=== PATIENT | female | born 1980 | race African-American/Black ===

== ENCOUNTER 2017-07-31 20:15 | Inpatient (IN) | payer OTHER ==
[2017-07-31] MEDS ORDERED: MELATONIN 5 MG TABLETS PO PRN (22:00)
[2017-07-31 22:38] VITALS: BMI 24.2
--- NOTE | 2017-07-31 23:12 | HP ---
CIWA Score - CIWA Score Nausea/Vomitin-Mild Nausea/No Vomiting Muscle Tremors: 3 Anxiety: 4-Mod. Anxious/Guarded Agitation: 5 Paroxysmal Sweats: 3 Orientation: 1-Uncertain about Date Tacttile Disturbances: 0-None Auditory Disturbances: 0-None Visual Disturbances: 0-None Headache: 0-None Present CIWA-Ar Total Score: 17 Admission ROS BHS - HPI Chief Complaint: C/O WITHDRAWAL SX'S. SEEKING DETOX TXMENT FOR ALCOHOLISM Allergies/Adverse Reactions: Allergies Allergy/AdvReac Type Severity Reaction Status Date / Time Fish Containing Products Allergy Verified 07/31/17 23:06 History of Present Illness: 37 Y.O. FEMLAE WITH HX/O ALCOHOLISM HERE FOR DETOX. CLIENT WAS REFERRED FROM [facility] AFTER PRESENTING THERE FOR OUT PATIENT TXMENT. LAST DETOX 2 MONTHS AGO. THIS IS HER FIRST TIME HERE. REPORTS LONGEST CLEAN TIME 4 MONTHS. 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 Loss EENT: reports: Other (GLASSES) Respiratory: reports: No Symptoms reported Cardiac: reports: No Symptoms Reported GI: reports: Nausea, Poor Appetite, Vomiting : reports: No Symptoms Reported Musculoskeletal: reports: Back Pain, Joint Pain, Other (L ELBOW FX 2 MONTHS AGO) Integumentary: reports: No Symptoms Reported Neuro: reports: Headache (MIGRAINES) Endocrine: reports: No Symptoms Reported Hematology: reports: Other (SICKLE CELL TRAIT) Psychiatric: reports: Anxious, Depressed Other Systems: Reviewed and Negative Patient History - Patient Medical History Hx Anemia: No Hx Asthma: Yes Hx Chronic Obstructive Pulmonary Disease (COPD): No Hx Cancer: No Hx Cardiac Disorders: No Hx Congestive Heart Failure: No Hx Hypertension: Yes (NO MEDS) Hx Hypercholesterolemia: No Hx Pacemaker: No HX Cerebrovascular Accident: No Hx Seizures: No Hx Dementia: No Hx Diabetes: No Hx Gastrointestinal Disorders: Yes (PANCREATITIS) Hx Liver Disease: No Hx Genitourinary Disorders: No Hx Sexually Transmitted Disorders: No Hx Renal Disease (ESRD): No Hx Thyroid Disease: No Hx Human Immunodeficiency Virus (HIV): No Hx Hepatitis C: No Hx Depression: Yes Hx Suicide Attempt: No Hx Bipolar Disorder: No Hx Schizophrenia: No Other Medical History: ANXIETY - Patient Surgical History Past Surgical History: Yes Other Surgical History: L INNER EAR Anesthesia Reaction: No - PPD History Previous Implant?: Yes Documented Results: Negative w/o proof Implanted On Prior R Admission?: No PPD to be Administered?: Yes - Reproductive History Patient is a Female of Child Bearing Age (11 -55 yrs old): Yes LMP comment: 2 WEEKS AGO Patient : No ([facility]) - Smoking Cessation Smoking history: Current every day smoker Have you smoked in the past 12 months: Yes Aproximately how many cigarettes per day: 20 Cigars Per Day: 0 Hx Chewing Tobacco Use: No Initiated information on smoking cessation: Yes 'Breaking Loose' booklet given: 07/31/17 - Substance & Tx. History Hx Alcohol Use: Yes Hx Substance Use: Yes Substance Use Type: Alcohol Hx Substance Use Treatment: Yes ([facility]) - Substances Abused VODKA Route: Oral Frequency: Daily Amount used: 3 PINTS Age of first use: 26 Date of Last Use: 07/31/17 Family Disease History - Family Disease History Family Disease History: Other: Father (DRUG ADDICT), Mother (SICKLE CELL TRAIT) Admission Physical Exam S - Vital Signs Vital Signs: Vital Signs - 24 hr 07/31/17 22:35 Temperature 98.2 F Pulse Rate 80 Respiratory 22 Rate Blood Pressure 158/97 - Physical General Appearance: Yes: Appropriately Dressed, Tremorous, Irritable HEENTM: Yes: EOMI, Normocephalic, Normal Voice, KAYLEEN, Pharynx Normal, Other ( GLASSES) Respiratory: Yes: Chest Non-Tender, Lungs Clear, Normal Breath Sounds, No Respiratory Distress, No Accessory Muscle Use Neck: Yes: No masses,lesions,Nodules, Supple, Trachea in good position Breast: Yes: Breast Exam Deferred Cardiology: Yes: Regular Rhythm, Regular Rate, S1, S2 Abdominal: Yes: Normal Bowel Sounds, Non Tender, Soft Genitourinary: Yes: Within Normal Limits Back: Yes: Normal Inspection Musculoskeletal: Yes: full range of Motion, Gait Steady Extremities: Yes: Normal Range of Motion, Non-Tender, Tremors Neurological: Yes: Fully Oriented, Alert, Motor Strength 5/5 Integumentary: Yes: Normal Color, Dry, Warm, Other (ECZEMA NOTED TO NECK AND FOLDS OF ARMS) Lymphatic: Yes: Within Normal Limits - Diagnostic (1) HTN (hypertension) Current Visit: Yes Status: Chronic Qualifiers: Hypertension type: essential hypertension Qualified Code(s): I10 - Essential (primary) hypertension (2) Nicotine dependence Current Visit: Yes Status: Chronic Qualifiers: Nicotine product type: cigarettes Substance use status: uncomplicated Qualified Code(s): F17.210 - Nicotine dependence, cigarettes, uncomplicated (3) Asthma Current Visit: Yes Status: Chronic Qualifiers: Asthma severity: mild Asthma persistence: intermittent Asthma complication type: uncomplicated Qualified Code(s): J45.20 - Mild intermittent asthma, uncomplicated (4) Alcohol dependence with uncomplicated withdrawal Current Visit: Yes Status: Chronic (5) History of pancreatitis Current Visit: Yes Status: Inactive (6) Eczema Current Visit: Yes Status: Acute Cleared for Admission S - Detox or Rehab S Level of Care: Medically Managed Detox Regimen/Protocol: Librium Claeared for Rehab Admission: No S Breath Alcohol Content Breath Alcohol Content: 0 Urine Pregancy Test - Result Urine Test Results: Negative- NO Line Present Urine Drug Screen - Results Drug Screen Negative: Yes
[2017-07-31] MEDS ORDERED: MAGNESIUM HYDROX 2400MG/30ML ORAL SUSPENSION 30 ML CUP PO PRN (23:28)
[2017-07-31] MEDS ORDERED: LOPERAMIDE HCL 2 MG CAPSULE PO PRN (23:28)
[2017-07-31] MEDS ORDERED: MAG HYDROX/AL HYDROX/SIMETH 30 ML UNIT-DOSE CUP PO PRN (23:28)
[2017-07-31] MEDS ORDERED: MENTHOL/PHENOL 1 EACH UD MM PRN (23:28)
[2017-07-31] MEDS ORDERED: hydrOXYzine PAMOATE 50 MG CAPSULE (FP) PO PRN (23:28)
[2017-07-31] MEDS ORDERED: P-EPHED 60MG/TRIPROLIDI 2.5MG TABLET PO PRN (23:28)
[2017-07-31] MEDS ORDERED: NICOTINE POLACRILEX 2 MG GUM BC PRN (23:28)
[2017-07-31] MEDS ORDERED: MAGNESIUM CITRATE 300 ML BOTTLE PO PRN (23:28)
[2017-07-31] MEDS ORDERED: IBUPROFEN 400 MG TABLET (FP) PO PRN (23:28)
[2017-07-31] MEDS ORDERED: guaiFENesin/D-METHORPHAN HB 10 ML UNIT-DOSE CUPS PO PRN (23:28)
[2017-07-31] MEDS ORDERED: chlordiazePOXIDE HCL 25 MG CAPSULE PO PRN (23:28)
[2017-07-31] MEDS ORDERED: ACETAMINOPHEN 325 MG TABLET (FP) PO PRN (23:28)
[2017-08-01] MEDS: chlordiazePOXIDE HCL 25 MG CAPSULE PO SCH ×5 (02:03→22:11)
--- NOTE | 2017-08-01 09:32 | EKG ---
Test Reason : Blood Pressure : / mmHG Vent. Rate : 081 BPM Atrial Rate : 081 BPM P-R Int : 148 ms QRS Dur : 088 ms QT Int : 432 ms P-R-T Axes : 074 010 035 degrees QTc Int : 501 ms NORMAL SINUS RHYTHM PROLONGED QT ABNORMAL ECG NO PREVIOUS ECGS AVAILABLE Confirmed by JASON SINGH MD ([id number]) on 08/01/2017 9:32:38 AM Referred By: Confirmed By:JASON SINGH MD
--- NOTE | 2017-08-01 09:32 | EKG ---
Test Reason : Blood Pressure : / mmHG Vent. Rate : 083 BPM Atrial Rate : 083 BPM P-R Int : 146 ms QRS Dur : 084 ms QT Int : 416 ms P-R-T Axes : 068 011 037 degrees QTc Int : 488 ms NORMAL SINUS RHYTHM NONSPECIFIC T WAVE ABNORMALITY PROLONGED QT ABNORMAL ECG WHEN COMPARED WITH ECG OF 01-AUG-2017 01:50, NONSPECIFIC T WAVE ABNORMALITY NOW EVIDENT IN ANTERIOR LEADS Confirmed by FRANCISCO RODAS, JASON ([id number]) on 08/01/2017 9:32:22 AM Referred By: Confirmed By:JASON SINGH MD
[2017-08-01 09:55] LABS: HEMATOCRIT 35.5 % (32.4-45.2); HEMOGLOBIN 11.9 GM/dL (10.7-15.3); MCH 26.2 pg (25.7-33.7); MCHC 33.4 g/dl (32.0-36.0); MEAN CELL VOLUME 78.3 fl (80-96); MEAN PLT VOLUME 7.4 fl (7.5-11.1); PLATELET COUNT 179 K/MM3 (134-434); RBC 4.53 M/mm3 (3.60-5.2); RDW 17.7 % (11.6-15.6); WHITE BLOOD COUNT 2.8 K/mm3 (4.0-10.0)
[2017-08-01 10:00] LABS: CHLORIDE 104 mmol/L (98-107); POTASSIUM 3.4 mmol/L (3.5-5.1); SODIUM 140 mmol/L (136-145)
[2017-08-01] MEDS: PRENATAL VITAMINS W/ FOLIC ACID TABLET (FP) PO SCH (10:09)
[2017-08-01] MEDS: NICOTINE 21 MG/24 HOURS TOPICAL PATCH TD SCH (10:10)
[2017-08-01 10:14] LABS: ALBUMIN 3.6 g/dl (3.4-5.0); ALK PHOS 137 U/L (45-117); ANION GAP 8 (8-16); BILIRUBIN,TOTAL 1.5 mg/dL (0.2-1.0); BLOOD UREA NITROGEN 5 mg/dL (7-18); CALCIUM 8.2 mg/dL (8.5-10.1); CO2 28 mmol/L (21-32); CREATININE 0.5 mg/dL (0.55-1.02); GLUCOSE,RANDOM 82 mg/dL (74-106); SGOT/AST 392 U/L (15-37); SGPT/ALT 174 U/L (12-78); TOT PROT 8.4 g/dl (6.4-8.2)
--- NOTE | 2017-08-01 10:25 | PN ---
S CIWA - CIWA Score Nausea/Vomitin Muscle Tremors: 3 Anxiety: 3 Agitation: 3 Paroxysmal Sweats: 3 Orientation: 0-Oriented Tacttile Disturbances: 1-Very Mild Itch/Numbness Auditory Disturbances: 0-None Visual Disturbances: 0-None Headache: 1-Very Mild CIWA-Ar Total Score: 17 BHS Progress Note (SOAP) Subjective: nausea, sweats, interrupted sleep, anxiety, tremors Objective: 08/01/17 10:25 Vital Signs - 24 hr 07/31/17 08/01/17 08/01/17 22:35 01:30 02:30 Temperature 98.2 F 98.2 F Pulse Rate 80 82 80 Respiratory 22 18 18 Rate Blood Pressure 158/97 152/95 08/01/17 08/01/17 08/01/17 03:00 03:30 04:00 Temperature Pulse Rate 78 76 74 Respiratory 18 16 18 Rate Blood Pressure 08/01/17 08/01/17 08/01/17 04:30 05:00 05:30 Temperature Pulse Rate 76 79 81 Respiratory 16 16 16 Rate Blood Pressure 08/01/17 08/01/17 08/01/17 06:00 06:30 07:30 Temperature 97.9 F Pulse Rate 89 89 86 Respiratory 16 16 16 Rate Blood Pressure 118/69 08/01/17 08/01/17 08/01/17 08:00 08:30 10:07 Temperature 98.2 F Pulse Rate 83 83 91 H Respiratory 16 18 18 Rate Blood Pressure 122/90 Laboratory Tests 08/01/17 08/01/17 08:00 08:00 WBC 2.8 L RBC 4.53 Hgb 11.9 Hct 35.5 MCV 78.3 L MCH 26.2 MCHC 33.4 RDW 17.7 H Plt Count 179 MPV 7.4 L Sodium 140 Potassium 3.4 L Chloride 104 Carbon Dioxide 28 Anion Gap 8 BUN 5 L Creatinine 0.5 L Creat Clearance w eGFR > 60 Random Glucose 82 Calcium 8.2 L Total Bilirubin 1.5 H AST 392 H ALT 174 H Alkaline Phosphatase 137 H Total Protein 8.4 H Albumin 3.6 elevated lfts Assessment: 08/01/17 10:25 withdrawawl sx, - cont detox, hepatitis, repeat labs, fluids
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
[2017-08-01] MEDS ORDERED: THIAMINE HCL 100 MG TABLET (FP) PO SCH (22:00)
[2017-08-02] MEDS: chlordiazePOXIDE HCL 25 MG CAPSULE PO SCH ×2 (06:05→10:44)
[2017-08-02 07:01] VITALS: TEMP 98.1
[2017-08-02] MEDS ORDERED: FLUoxetine HCL 20 MG CAPSULE (FP) PO SCH (10:00)
[2017-08-02 10:42] LABS: INR 1.02 (0.82-1.09); PROTHROMBIN TIME (PATIENT) 11.5 SEC (9.98-11.88)
[2017-08-02] MEDS: PRENATAL VITAMINS W/ FOLIC ACID TABLET (FP) PO SCH (10:44)
[2017-08-02] MEDS: NICOTINE 21 MG/24 HOURS TOPICAL PATCH TD SCH (10:44)
[2017-08-02 10:51] LABS: ALBUMIN 3.7 g/dl (3.4-5.0); ANION GAP 9 (8-16); BLOOD UREA NITROGEN 4 mg/dL (7-18); CALCIUM 8.7 mg/dL (8.5-10.1); CHLORIDE 102 mmol/L (98-107); CO2 28 mmol/L (21-32); GLUCOSE,RANDOM 82 mg/dL (74-106); POTASSIUM 3.2 mmol/L (3.5-5.1); SGOT/AST 164 U/L (15-37); SODIUM 139 mmol/L (136-145)
[2017-08-02 10:53] LABS: ALK PHOS 139 U/L (45-117); BILIRUBIN,TOTAL 2.6 mg/dL (0.2-1.0); CREATININE 0.6 mg/dL (0.55-1.02); SGPT/ALT 134 U/L (12-78)
[2017-08-02 11:08] VITALS: BP 141/96; PULSE 101
--- NOTE | 2017-08-02 11:48 | PN ---
S CIWA - CIWA Score Nausea/Vomitin Muscle Tremors: 3 Anxiety: 3 Agitation: 2 Paroxysmal Sweats: 1-Minimal Palms Moist Orientation: 0-Oriented Tacttile Disturbances: 1-Very Mild Itch/Numbness Auditory Disturbances: 1-Very Mild Visual Disturbances: 0-None Headache: 2-Mild CIWA-Ar Total Score: 16 BHS Progress Note (SOAP) Subjective: ALERT,IRRITABLE,ANXIOUS,TREMOR,INTERRUPTED SLEEP,PAIN IN THE BODY Objective: 08/02/17 11:43 Vital Signs Temperature 98.1 F 08/02/17 11:07 Pulse Rate 101 H 08/02/17 11:07 Respiratory Rate 08/02/17 11:07 Blood Pressure 141/96 08/02/17 11:07 O2 Sat by Pulse Oximetry (%) Laboratory Results - last 24 hr 08/01/17 08/02/17 08/02/17 08:00 07:50 07:50 PT with INR 11.50 INR 1.02 Sodium 139 Potassium 3.2 L Chloride 102 Carbon Dioxide 28 Anion Gap 9 BUN 4 L Creatinine 0.6 Creat Clearance w eGFR > 60 Random Glucose 82 Calcium 8.7 Total Bilirubin 2.6 H D AST 164 H ALT 134 H Alkaline Phosphatase 139 H Total Protein 8.0 Albumin 3.7 RPR Titer Nonreactive Assessment: 08/02/17 11:48 WITHDRAWAL SYMPTOM,HYPOKALEMIA K IS 3.2,K DUR 20 MEQ TODAY THEN DAILY FOR 5 DAYS Plan: CONTINUE DETOX
--- NOTE | 2017-08-02 11:53 | PN ---
S Progress Note Note: PATIENT DID NOT WANT TO COMPLETE TREATMENT,SIGNED RELEASE AMA,SEEN BY COUNSELOR
--- NOTE | 2017-08-02 11:58 | DS ---
[facility] Detox Discharge Summary Admission Date: 07/31/17 Discharge Date: 08/02/17 - History Present History: Alcohol Dependence Additional Comments: PATIENT DID NOT WANT TO COMPLETE TREATMENT,SIGNED RELEASE AMA,SEEN BY COUNSELOR, ATTEMPT TO CONVINCE PATIENT TO STAY WITH NO AVAIL Pertinent Past History: ASTHMA HYPERTENSION NICOTINE DEPENDENCE ECZEMA HISTORY OF PANCREATITIS - Physical Exam Results Vital Signs: Vital Signs Temperature 98.1 F 08/02/17 11:07 Pulse Rate 101 H 08/02/17 11:07 Respiratory Rate 18 08/02/17 11:07 Blood Pressure 141/96 08/02/17 11:07 O2 Sat by Pulse Oximetry (%) Pertinent Admission Physical Exam Findings: WITHDRAWAL SIGNS AND SYMPTOM - Treatment Hospital Course: Detox Protocol Followed, Detoxed Safely, Responded well, Discharged Condition Good - Medication Discharge Medications: Ambulatory Orders Fluoxetine HCl [Prozac -] 20 mg PO DAILY 08/01/17 Potassium Chloride [K-Dur -] 20 meq PO DAILY #5 tablet.er 08/02/17 - Diagnosis (1) Alcohol dependence with uncomplicated withdrawal Current Visit: Yes Status: Acute (2) Hypokalemia Current Visit: Yes Status: Acute (3) Dehydration Current Visit: Yes Status: Acute (4) Eczema Current Visit: Yes Status: Acute (5) Nicotine dependence Current Visit: Yes Status: Acute Qualifiers: Nicotine product type: cigarettes Substance use status: uncomplicated Qualified Code(s): F17.210 - Nicotine dependence, cigarettes, uncomplicated (6) Asthma Current Visit: Yes Status: Chronic Qualifiers: Asthma severity: mild Asthma persistence: intermittent Asthma complication type: uncomplicated Qualified Code(s): J45.20 - Mild intermittent asthma, uncomplicated (7) HTN (hypertension) Current Visit: Yes Status: Chronic Qualifiers: Hypertension type: essential hypertension Qualified Code(s): I10 - Essential (primary) hypertension - AMA Did Patient Leave Against Medical Advice: Yes
[2017-08-02] MEDS ORDERED: POTASSIUM CHLORIDE TABS 20 MEQ TABLET.ER (FP) PO ONE (12:00)
[2017-08-02] MEDS ORDERED: chlordiazePOXIDE 5 MG CAPSULE PO SCH (23:00)
[2017-08-03] MEDS ORDERED: POTASSIUM CHLORIDE TABS 20 MEQ TABLET.ER (FP) PO SCH (10:00)
[2017-08-03] MEDS ORDERED: chlordiazePOXIDE HCL 10 MG CAPSULE PO SCH (23:00)
== END 2017-08-02 12:25 | disposition left against medical advice (07) | DRG 770 ==
LOC: YASAS 20:15 → Y6N 23:01
PROVIDERS: ADMIT Internal Medicine; ATTEND Internal Medicine
PROC: HZ2ZZZZ Detoxification Services for Substance Abuse Treatment (ICD-10-PCS; principal; 2017-07-31)
DX: F10.230 Alcohol dependence with withdrawal, uncomplicated (principal); F17.210 Nicotine dependence, cigarettes, uncomplicated; F43.10 Post-traumatic stress disorder, unspecified; F41.9 Anxiety disorder, unspecified; F33.9 Major depressive disorder, recurrent, unspecified; I10 Essential (primary) hypertension; E87.6 Hypokalemia; J45.20 Mild intermittent asthma, uncomplicated; L30.9 Dermatitis, unspecified
CPT/HCPCS: 36415; 80053; 85027; 85610; 86593; 87389; 93005; 93010